=== PATIENT | male | born 1960 | race Caucasian/White ===

== ENCOUNTER 2017-07-05 10:45 | Emergency (ER) | payer MEDICAID ==
[~2017-07-05] VITALS: Ht 172.7 cm; Wt 70.3 kg
[2017-07-05 11:01] VITALS: Ht 172.7 cm; Wt 70.3 kg
[2017-07-05 12:57] VITALS: BP 118/74
== END 2017-07-05 12:57 | disposition home or self-care (01) ==
LOC: ED 10:45
DX: S51.812A Laceration without foreign body of left forearm, initial encounter (principal); Z88.0 Allergy status to penicillin; W26.8XXA Contact with other sharp object(s), not elsewhere classified, initial encounter; Y93.89 Activity, other specified; Y92.89 Other specified places as the place of occurrence of the external cause; Y99.8 Other external cause status
CPT/HCPCS: 90715; J2001

== ENCOUNTER 2017-08-03 15:03 | Emergency (ER) | payer MEDICAID ==
[~2017-08-03] VITALS: Ht 172.7 cm; Wt 68.0 kg
[2017-08-03 15:20] VITALS: BP 129/76; Ht 172.7 cm; Wt 68.0 kg
== END 2017-08-03 17:10 | disposition home or self-care (01) ==
LOC: ED 15:03
DX: S51.812D Laceration without foreign body of left forearm, subsequent encounter (principal); I10 Essential (primary) hypertension; E11.9 Type 2 diabetes mellitus without complications; X58.XXXD Exposure to other specified factors, subsequent encounter